=== PATIENT | male | born 1975 | race Caucasian/White ===

== ENCOUNTER 2017-03-08 19:29 | Emergency (ER) | payer OTHER ==
[2017-03-08 20:54] LABS: APPEARANCE HAZY (CLEAR); BILIRUBIN NEGATIVE (NEGATIVE); COLOR DK YELLOW (YELLOW); GLUCOSE NEGATIVE (NEGATIVE); KETONE NEGATIVE (NEGATIVE); LEUKOCYTE ESTERASE TRACE (NEGATIVE); NITRITE NEGATIVE (NEGATIVE); PROTEIN NEGATIVE (NEGATIVE); SPECIFIC GRAVITY 1.015 (1.005-1.020)
[2017-03-08 20:55] LABS: BACTERIA FEW /hpf (NONE SEEN); EPITHELIAL CELLS 0-5 /hpf (0-5); MUCUS <1+ /lpf (NONE SEEN); RED CELLS - URINE 25-50 /hpf (0-5); WHITE CELLS - URINE 0-5 /hpf (0-5)
[2017-03-08 21:18] LABS: BASOPHILS 0.1 % (0-2); EOSINOPHILS 0.4 % (0-7); HEMATOCRIT 40.9 % (42.0-54.0); HEMOGLOBIN 13.6 g/dL (13.5-17.5); IMMATURE GRANULOCYTES 0.2 % (0-5); LYMPHOCYTES 11.9 % (15-50); MCH 31.1 pg (26.0-34.0); MCHC 33.3 g/dL (31.0-37.0); MCV 93.6 fL (80.0-100.0); MEAN PLATELET VOLUME 10.5 fL (7.4-10.4); MONOCYTES 12.1 % (2-11); NEUTROPHILS 75.3 % (40-80); PLATELET COUNT 121 10x3/uL (130-400); RBC 4.37 10x6/uL (4.20-6.10); RDW 12.7 % (11.5-14.5); WBC 9.1 10x3/uL (4.8-10.8)
[2017-03-08 21:29] LABS: ANION GAP 9.5 mmol/L (8-16); CALCIUM 8.3 mg/dL (8.5-10.1); CARBON DIOXIDE 26.8 mmol/L (21.0-32.0); CREATININE - SERUM 1.7 mg/dL (0.6-1.3); POTASSIUM - SERUM 3.3 mmol/L (3.5-5.1)
== END 2017-03-08 21:48 | disposition home or self-care (01) ==
LOC: D.ER 19:29
PROVIDERS: Emergency Medicine; Nurse Practitioner Acute Care
DX: N13.2 Hydronephrosis with renal and ureteral calculous obstruction (principal)

== ENCOUNTER 2021-01-25 08:00 | Day surgery (SDC) | payer OTHER ==
[~2021-01-25] VITALS: Ht 177.8 cm; Wt 109.8 kg
[2021-01-25 06:35] LABS: BASOPHILS 1.1 % (0-2); EOSINOPHILS 4.2 % (0-7); HEMATOCRIT 40.9 % (42.0-54.0); HEMOGLOBIN 13.4 g/dL (13.5-17.5); LYMPHOCYTES 24.3 % (15-50); MCH 30.5 pg (26.0-34.0); MCHC 32.8 g/dL (31.0-37.0); MCV 92.8 fL (80.0-100.0); MEAN PLATELET VOLUME 8.1 fL (7.4-10.4); MONOCYTES 9.9 % (2-11); NEUTROPHILS 60.5 % (40-80); RBC 4.41 10x6/uL (4.20-6.10); RDW 13.6 % (11.5-14.5); WBC 6.2 10x3/uL (4.8-10.8)
[2021-01-25 06:44] LABS: PLATELET COUNT 197 10x3/uL (130-400)
[2021-01-25 06:51] LABS: CALC OSMOLALITY 284 mosm/kg (275-300); CALCIUM 8.5 mg/dL (8.5-10.1); CARBON DIOXIDE 28.1 mmol/L (21.0-32.0); CHLORIDE - SERUM 108 mmol/L (98-107); GLUCOSE 102 mg/dL (74-106); SODIUM 143 mmol/L (136-145); UREA NITROGEN 13 mg/dL (7-18); eGFR NON AFRICAN AMERICAN 86 mL/min (90-120)
[~2021-01-25 08:00] MED LIST: LAMICTAL150 M1
[2021-01-25 08:12] VITALS: BP 131/88; Ht 177.8 cm; Wt 109.8 kg
[2021-01-25] MEDS ORDERED: HYDROCODON-ACE1 EA10 PO (10:15)
--- NOTE | 2021-01-25 10:32 | NUR ---
OPA IN AIRWAY ON ADMIT
--- NOTE | 2021-01-25 15:27 | NUR ---
1230 - UP TO BATHROOM TO VOID WITHOUT DIFFICULTY.
--- NOTE | 2021-01-25 15:28 | NUR ---
1245 - IV D/C'D WITH TIP INTACT. DISCHARGE INSTRUCTIONS GIVEN.
--- NOTE | 2021-01-25 15:29 | NUR ---
1305 - PATIENT DISCHARGED VIA WHEELCHAIR TO PRIVATE CAR.
--- NOTE | 2021-01-26 19:39 | OP ---
PATIENT NAME: PHOEBE STEWART MEDICAL RECORD: [id number] LOCATION:D.OPS ADMISSION DATE: SURGEON: DESTINEY KEITH MD DATE OF OPERATION: 01/25/2021 PREOPERATIVE DIAGNOSES: 1. Ventral hernia. 2. Seizure disorder. POSTOPERATIVE DIAGNOSES: 1. Ventral hernia. 2. Seizure disorder. PROCEDURE: Ventral hernia repair. SURGEON: Destiney Keith MD DESCRIPTION OF PROCEDURE: The patient's abdomen was prepped and draped in sterile fashion. A semicircular incision was made on the inferior aspect of the umbilicus. Electrocautery was used to dissect through the subcutaneous tissues and fascia. The umbilicus was elevated and just above the umbilicus there was noted to be a fat-containing hernia defect. The hernia sac was resected down to the fascial edges and the fatty contents were pushed back into the abdominal cavity. The hernia defect was about 1 cm long and 1.3 cm wide. We cleared off the fascial edges and reapproximated the fascia transversely with interrupted 0 Prolenes x4. The wound was irrigated out with normal saline. The umbilicus was tacked down using a single interrupted 3-0 Vicryl. The subcutaneous tissues were reapproximated with interrupted 3-0 Vicryl and the skin was closed with running subcutaneous 5-0 Monocryl. A 10 mL of 0.25% Marcaine plain were infused into the surrounding tissues and the wound was dressed appropriately. COMPLICATIONS: None. CONDITION: Stable. ANESTHESIA: General endotracheal and local. BLOOD LOSS: Minimal. TRANSINT:[id number] Voice Confirmation ID: [id number] DOCUMENT ID: [id number] DESTINEY KEITH MD at 1939 CC: TERRY ROBBINS MD [id number] DICTATION DATE: 01/25/21 1016 MANAGER SECURITY: 01/25/21 1228 [facility] 01/25/21 [id number] [place] [address]
== END 2021-01-25 13:05 | disposition home or self-care (01) ==
LOC: D.OPS 08:00
PROVIDERS: ATTEND Surgery
DX: K43.9 Ventral hernia without obstruction or gangrene (principal); G40.909 Epilepsy, unspecified, not intractable, without status epilepticus